=== PATIENT | female | born 1985 | race Caucasian/White ===

== ENCOUNTER 2022-01-29 15:26 | Emergency (ER) | payer SELFPAY ==
[2022-01-29] VITALS (7 sets, daily range): BP systolic 116–149; BP diastolic 74–98; PULSE 68–101; RESP 16–18; TEMP 36.6; O2SAT 98–100; BMI 21.5
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
--- NOTE | 2022-01-29 15:32 | CT_ITS ---
PROCEDURE INFORMATION: Exam: CT Head Without Contrast Exam date and time: 01/29/2022 4:51 PM Age: 36 years old Clinical indication: Injury or trauma; Other: Fell off of horse; Blunt trauma (contusions or hematomas); Additional info: Head injury TECHNIQUE: Imaging protocol: Computed tomography of the head without contrast. Radiation optimization: All CT scans at this facility use at least one of these dose optimization techniques: automated exposure control; mA and/or kV adjustment per patient size (includes targeted exams where dose is matched to clinical indication); or iterative reconstruction. COMPARISON: No relevant prior studies available. FINDINGS: Brain: Normal. No hemorrhage. Unremarkable white matter. No mass effect. Cerebral ventricles: No ventriculomegaly. Paranasal sinuses: Visualized sinuses are unremarkable. No fluid levels. Mastoid air cells: Visualized mastoid air cells are well aerated. Bones/joints: Unremarkable. No acute fracture. Soft tissues: Unremarkable. IMPRESSION: No acute intracranial abnormality.
--- NOTE | 2022-01-29 15:33 | CT_ITS ---
PROCEDURE INFORMATION: Exam: CT Abdomen And Pelvis With Contrast Exam date and time: 01/29/2022 5:01 PM Age: 36 years old Clinical indication: Injury or trauma; Other: Fell off of horse; Blunt; Generalized; Additional info: Post-op pain TECHNIQUE: Imaging protocol: Computed tomography of the abdomen and pelvis with contrast. Radiation optimization: All CT scans at this facility use at least one of these dose optimization techniques: automated exposure control; mA and/or kV adjustment per patient size (includes targeted exams where dose is matched to clinical indication); or iterative reconstruction. Contrast material: ISOVUE; Contrast volume: 75 ml; Contrast route: IV; COMPARISON: CT CHEST WO CON 01/29/2022 4:56 PM FINDINGS: Lungs: Bandlike atelectasis in the left lung base. Lung bases otherwise clear. Heart: Heart size normal. Mediastinal space: The visualized distal esophagus is largely contracted without gross abnormality. Liver: Normal contour. No mass lesions. No intrahepatic biliary ductal dilatation. Gallbladder and bile ducts: Normal. No calcified stones. No ductal dilation. Pancreas: Normal. No inflammatory changes or ductal dilation. Spleen: Normal. No splenomegaly. Adrenal glands: Normal. No adrenal mass. Kidneys and ureters: No acute abnormalities. No hydronephrosis or hydroureter. No urinary tract stones are identified. Stomach and bowel: The stomach is largely contracted without gross abnormality. The small bowel is nondilated with no gross abnormality. There is a moderate amount of stool distributed in the mid and proximal colon suggesting possible constipation. Appendix: The appendix is not identified. No secondary signs of appendicitis. Intraperitoneal space: No free fluid or air. Vasculature: No acute process. No abdominal aortic aneurysm. Lymph nodes: No adenopathy. Urinary bladder: Unremarkable as visualized. Reproductive: Unremarkable as visualized. Bones/joints: No acute osseous abnormalities. Soft tissues: Mild subcutaneous soft tissue stranding/swelling over the lateral right hip suggesting mild soft tissue contusion with no hematoma or foreign body. Radiodense material tracks beneath the right posterolateral pants/belt line on the skin surface. IMPRESSION: 1. No acute intra-abdominal/intrapelvic process. 2. Mild soft tissue contusion in the right lateral subcutaneous fat over the right hip with no underlying fracture, hematoma, or foreign body. 3. Moderate colonic stool in the mid to proximal colon, possible constipation.
--- NOTE | 2022-01-29 15:39 | XR_ITS ---
PROCEDURE INFORMATION: Exam: XR Pelvis Exam date and time: 01/29/2022 5:31 PM Age: 36 years old Clinical indication: Injury or trauma; Other: Fell off of horse; Blunt trauma (contusions or hematomas); Does not apply; Pelvic region TECHNIQUE: Imaging protocol: Radiologic exam of the pelvis. Views: 1 or 2 view. COMPARISON: CT ABDOMEN PELVIS W CON 01/29/2022 5:01 PM FINDINGS: Bones/joints: No fracture. Hip joints are well aligned. Hip joint spaces and articular surfaces are grossly well-maintained. No blastic or lytic lesions. The SI joints are unremarkable. The pubic symphysis is unremarkable. Soft tissues: No gross soft tissue abnormalities. There is radiodense material projecting over the right iliac wing which localizes along the skin surface on the comparison CT images. Other findings: No gross sacrococcygeal abnormalities. IMPRESSION: No acute findings.
--- NOTE | 2022-01-29 15:39 | XR_ITS ---
PROCEDURE INFORMATION: Exam: XR Right Shoulder Exam date and time: 01/29/2022 5:31 PM Age: 36 years old Clinical indication: Injury or trauma; Other: Fell off of horse; Blunt trauma (contusions or hematomas); Shoulder; Right; Additional info: Pain TECHNIQUE: Imaging protocol: Radiologic exam of the Right shoulder. Views: 2 or more views. COMPARISON: CT CHEST WO CON 01/29/2022 4:56 PM FINDINGS: Bones/joints: No fractures. Glenohumeral alignment is normal. A.C. joint alignment is normal. No blastic or lytic lesions. Adjacent ribs are intact. Lungs: Visualized lung parenchyma is unremarkable. Pleural space: No visible pleural effusion or pneumothorax. Soft tissues: No gross soft tissue abnormalities. IMPRESSION: No acute findings.
--- NOTE | 2022-01-29 15:50 | PC.NURSE ---
RN @ BS obtaining blood
--- NOTE | 2022-01-29 15:51 | PC.NURSE ---
CHECKED ON PT, STATES HE IS HURTING REALLY BAD, STATES THAT HE READY TO GO HOME, EXPLAINED TO PT THAT HE IS STILL NEEDING AN IV STARTED , BLOOD WORK DONE AND A CT WITH CONTRAST IS STILL NEEDING TO BE DONE,
--- NOTE | 2022-01-29 15:56 | PC.NURSE ---
Pt requested to wait on administration of ketorolac and Ondansteron. notified
[2022-01-29 16:15] LABS: Basophils % 0.4 % (0.1-2.0); Eosinophils # 0.1 K/mm3 (0.0-0.4); Eosinophils % 1.1 % (0.1-12.0); Hemoglobin 11.7 g/dL (12.2-16.2); Lymphocytes # 1.5 K/mm3 (0.7-4.5); Lymphocytes % 17.1 % (10-50); Mean Corpuscular HGB Conc 32.4 g/dL (31.8-35.4); Mean Corpuscular Hemoglobin 24.9 pg (27.0-31.2); Mean Corpuscular Volume 76.9 fl (81-99); Mean Platelet Volume 8.9 fl (7.4-10.4); Monocytes # 0.5 K/mm3 (0.1-1.0); Monocytes % 5.5 % (1.7-9.3); Neutrophils # 6.6 K/mm3 (1.8-7.8); Neutrophils % 75.9 % (37.0-80.0); Platelet Count 270 K/mm3 (142-424); Red Blood Count 4.68 M/mm3 (4.20-5.40); Red Cell Distribution Width 15.8 % (11.5-17.5); White Blood Count 8.6 K/mm3 (4.8-10.8)
[2022-01-29 16:16] LABS: Chloride 103 mmol/L (98-107); Sodium 140 mmol/L (136-145)
[2022-01-29 16:17] LABS: Potassium 3.7 mmoL/L (3.5-5.1)
[2022-01-29 16:19] LABS: Alanine Aminotransferase 28 U/L (12-78); Alkaline Phosphatase 82 U/L (38-126); Aspartate Amino Transferase 57 U/L (14-36); Bilirubin,Total 0.8 mg/dl (0.2-1.3); Blood Urea Nitrogen 11 mg/dl (7-17); Creatinine Clearance Estimated 92 mL/min (50-200); Estimated Glomerular Filt Rate 94 ml/min (>60); GFR (African American) 113 ML/MIN (>60)
[2022-01-29 16:20] LABS: Albumin Level 4.8 g/dl (3.5-5.0); Albumin/Globulin Ratio 1.5 (1.1-1.8); Anion Gap 14.7 mEq/L (5-15); Calcium 8.7 mg/dl (8.4-10.2); Carbon Dioxide 26 mmol/L (22.0-30.0); Globulin 3.3 g/dL (1.3-3.2); Glucose 96 mg/dl (74-100); Total Protein,Serum 8.1 g/dl (6.3-8.2)
[2022-01-29 16:28] LABS: HCG Qualitative, Serum Negative (Negative)
--- NOTE | 2022-01-29 16:50 | PC.NURSE ---
PTY LYING IN BED NOTHING NEEDED AT THIS TIME
--- NOTE | 2022-01-29 17:00 | PC.NURSE ---
Pt in rad for CT
--- NOTE | 2022-01-29 17:27 | PC.NURSE ---
Pt back from RAD
--- NOTE | 2022-01-29 18:24 | PC.NURSE ---
PT LYING IN BED, STATED THAT SHE WAS SORE BUT NOTHING NEEDED AT THIS TIME
--- NOTE | 2022-01-29 18:42 | PC.NURSE ---
Pt getting D/Cd
== END 2022-01-29 18:46 | disposition home or self-care (01) ==
PROVIDERS: Emergency Provider Emergency Medicine
DX: M54.6 Pain in thoracic spine (principal); R10.11 Right upper quadrant pain; R11.10 Vomiting, unspecified; Z91.040 Latex allergy status; Z91.048 Other nonmedicinal substance allergy status; V80.010A Animal-rider injured by fall from or being thrown from horse in noncollision accident, initial encounter
CPT/HCPCS: 70450; 71250; 72125; 72170; 73030; 74177; 80053; 84703; 85025; 96361; 96374; 96375; 99285; Q9967